=== PATIENT | female | born 1960 | race Hispanic/Latino ===

== ENCOUNTER 2019-02-08 03:47 | Emergency (ER) | payer MEDICARE ==
[2019-02-08] MEDS ORDERED: ASPIRIN PO ONE (03:57)
--- NOTE | 2019-02-08 04:39 | XRay Report ---
CHEST 2 VIEWS INDICATION / CLINICAL INFORMATION: Chest Pain. COMPARISON: None available. FINDINGS: SUPPORT DEVICES: None. HEART / MEDIASTINUM: No significant abnormality. LUNGS / PLEURA: No significant pulmonary or pleural abnormality. No pneumothorax. ADDITIONAL FINDINGS: No significant additional findings. IMPRESSION: 1. No acute findings. Signer Name: Christen Wright MD Signed: 02/08/2019 3:34 AM Workstation Name: [id number]
[2019-02-08 04:56] LABS: Basophils # (Auto) 0.1 K/mm3 (0.0-0.1); Basophils % (Auto) 0.9 % (0.0-1.8); Eosinophils # (Auto) 0.2 K/mm3 (0.0-0.4); Eosinophils % (Auto) 1.5 % (0.0-4.3); Lymphocytes # (Auto) 3.3 K/mm3 (1.2-5.4); Lymphocytes % (Auto) 31.1 % (13.4-35.0); Mean Corpuscular HGB Conc 30 % (30-34); Monocytes # (Auto) 0.9 K/mm3 (0.0-0.8); Monocytes % (Auto) 8.9 % (0.0-7.3); Platelet Count 232 K/mm3 (140-440); Red Blood Count 4.82 M/mm3 (3.65-5.03); Red Cell Distribution Width 17.9 % (13.2-15.2)
[2019-02-08 05:03] LABS: Hematocrit 31.1 % (30.3-42.9); Hemoglobin 9.3 gm/dl (10.1-14.3); Mean Corpuscular Volume 65 fl (79-97)
[2019-02-08 05:19] LABS: BUN/Creatinine Ratio 11; Blood Urea Nitrogen 11 mg/dL (7-17); Calcium 9.6 mg/dL (8.4-10.2); Hemolysis Index 0
[2019-02-08] MEDS ORDERED: DUONEB *Not for PRN Use IH ONE (06:33)
[2019-02-08] MEDS ORDERED: LEVAQUIN PO ONE (06:34)
--- NOTE | 2019-02-08 07:18 | Emergency Department Report ---
ED Shortness of Breath HPI - General Chief Complaint: Dyspnea/Respdistress Stated Complaint: EDD Time Seen by Provider: 02/08/19 06:22 Source: patient Mode of arrival: Ambulatory Limitations: No Limitations - History of Present Illness Initial Comments: Mrs. Mcghee is a pleasant 58-year-old female with history of "bronchial asthma". She presents with 3 weeks of shortness of breath. Her primary physician has prescribed inhaler, steroids and antibiotics [id number] without improvement. She states the inhaler makes the shortness of breath worse. Denies chest pain. Denies leg pain. Denies recent travel. Past medical history includes diabetes, asthma, In 2014 she was admitted for chest pain. Ruled out for ACS with negative stress test. Ejection fraction greater than 65%. She was told by her quality assurance lead that she had 40% blockage but no history of congestive heart failure. She has not been evaluated or diagnosed by [facility]. Former smoker stopped smoking 20 years ago. MD Complaint: shortness of breath -: Gradual, week(s) (3) Severity: mild Consistency: constant Worsens With: medication Known History Of: asthma Associated Symptoms: denies other symptoms - Related Data Home Medications Medication Instructions Recorded Confirmed Last Taken Insulin NPH/Regular [NovoLIN 70/30] 40 units SQ AMHY 08/10/14 03/27/15 08/09/14 Insulin NPH/Regular [NovoLIN 70/30] 50 units SQ HS 08/10/14 03/27/15 08/09/14 Metoprolol [Lopressor TAB] 50 mg PO BID 08/10/14 03/27/15 08/09/14 glipiZIDE [glipiZIDE XL] 10 mg PO BID 08/10/14 03/27/15 08/09/14 Atorvastatin Calcium [Lipitor] 20 mg PO DAILY 03/27/15 03/27/15 Unknown Venlafaxine [Effexor] 75 mg PO BID 03/27/15 03/27/15 1 Day Ago ~03/26/15 150mg Previous Rx's Medication Instructions Recorded Last Taken Type Cyclobenzaprine [Flexeril 10 MG 10 mg PO TID PRN #14 tablet 01/11/14 Unknown Rx TAB] Ibuprofen [Motrin 800 MG tab] 800 mg PO Q8H #50 tablet 07/24/14 Unknown Rx ALBUTEROL Inhaler (OR & NICU) 2 puff IH QID PRN #1 inhalation 08/10/14 Unknown Rx [ProAir HFA Inhaler] Fluticasone (Nf) [Flovent Hfa(Nf)] 2 puff IH BID 30 Days #1 device 02/08/19 Unknown Rx levoFLOXacin [Levaquin TAB] 500 mg PO QDAY #7 tablet 02/08/19 Unknown Rx Allergies Allergy/AdvReac Type Severity Reaction Status Date / Time No Known Allergies Allergy Verified 03/27/15 16:16 ED Review of Systems ROS: Stated complaint: EDD Other details as noted in HPI Comment: All other systems reviewed and negative Constitutional: denies: fever, malaise Respiratory: shortness of breath ED Past Medical Hx - Past Medical History Previous Medical History?: Yes Hx Hypertension: Yes Hx Diabetes: Yes Additional medical history: chronic back pain, crohns. anemia. heart blockage - Surgical History Past Surgical History?: Yes Hx Cholecystectomy: Yes - Social History Smoking Status: Never Smoker Substance Use Type: None - Medications Home Medications: Home Medications Medication Instructions Recorded Confirmed Last Taken Type Cyclobenzaprine [Flexeril 10 MG 10 mg PO TID PRN #14 tablet 01/11/14 03/27/15 Unknown Rx TAB] Ibuprofen [Motrin 800 MG tab] 800 mg PO Q8H #50 tablet 07/24/14 03/27/15 Unknown Rx ALBUTEROL Inhaler (OR & NICU) 2 puff IH QID PRN #1 inhalation 08/10/14 03/27/15 Unknown Rx [ProAir HFA Inhaler] Insulin NPH/Regular [NovoLIN 70/30] 40 units SQ AMHY 08/10/14 03/27/15 08/09/14 History Insulin NPH/Regular [NovoLIN 70/30] 50 units SQ HS 08/10/14 03/27/15 08/09/14 History Metoprolol [Lopressor TAB] 50 mg PO BID 08/10/14 03/27/15 08/09/14 History glipiZIDE [glipiZIDE XL] 10 mg PO BID 08/10/14 03/27/15 08/09/14 History Atorvastatin Calcium [Lipitor] 20 mg PO DAILY 03/27/15 03/27/15 Unknown History Venlafaxine [Effexor] 75 mg PO BID 03/27/15 03/27/15 1 Day Ago History ~03/26/15 150mg Fluticasone (Nf) [Flovent Hfa(Nf)] 2 puff IH BID 30 Days #1 device 02/08/19 Unknown Rx levoFLOXacin [Levaquin TAB] 500 mg PO QDAY #7 tablet 02/08/19 Unknown Rx ED Physical Exam - General Limitations: No Limitations General appearance: alert, in no apparent distress - Head Head exam: Present: atraumatic, normocephalic - Eye Eye exam: Present: normal appearance - ENT ENT exam: Present: mucous membranes moist - Neck Neck exam: Present: normal inspection, full ROM - Respiratory Respiratory exam: Present: normal lung sounds bilaterally. Absent: respiratory distress, wheezes, rales, rhonchi - Cardiovascular Cardiovascular Exam: Present: regular rate, normal rhythm, normal heart sounds. Absent: systolic murmur, diastolic murmur, rubs, gallop - GI/Abdominal GI/Abdominal exam: Present: soft, normal bowel sounds. Absent: distended, tenderness, guarding, rebound - Extremities Exam Extremities exam: Present: normal inspection - Back Exam Back exam: Present: normal inspection - Neurological Exam Neurological exam: Present: alert, oriented X3 - Psychiatric Psychiatric exam: Present: normal affect, normal mood - Skin Skin exam: Present: warm, dry, intact, normal color. Absent: rash ED Course Vital Signs 02/08/19 02/08/19 02/08/19 03:50 03:54 05:28 Temperature 97.7 F 97.7 F Pulse Rate 93 H 91 H Respiratory 18 20 Rate Blood Pressure 118/80 118/80 Blood Pressure [Left] O2 Sat by Pulse 97 97 96 Oximetry 02/08/19 02/08/19 02/08/19 05:30 05:33 07:27 Temperature Pulse Rate 88 Respiratory 18 20 Rate Blood Pressure 134/57 Blood Pressure 142/42 [Left] O2 Sat by Pulse 100 98 99 Oximetry ED Medical Decision Making - Lab Data Result diagrams: 02/08/19 04:45 02/08/19 04:45 Laboratory Results - last 24 hr 02/08/19 02/08/19 04:45 04:45 WBC 10.6 RBC 4.82 Hgb 9.3 L Hct 31.1 MCV 65 L MCH 19 L MCHC 30 RDW 17.9 H Plt Count 232 Lymph % (Auto) 31.1 Ware % (Auto) 8.9 H Eos % (Auto) 1.5 Baso % (Auto) 0.9 Lymph # 3.3 Ware # 0.9 H Eos # 0.2 Baso # 0.1 Seg Neutrophils % 57.6 Seg Neutrophils # 6.1 Sodium 135 L Potassium 3.9 Chloride 94.5 L Carbon Dioxide 25 Anion Gap 19 BUN 11 Creatinine 1.0 Estimated GFR 57 BUN/Creatinine Ratio 11 Glucose 336 H Calcium 9.6 Troponin T < 0.010 - EKG Data -: EKG Interpreted by Me - EKG Data 02/08/19 07:19 EKG obtained 0406 Normal sinus rhythm rate 85 beats a minute normal axis normal intervals and nonspecific T wave pattern no ST elevation positive LVH - Radiology Data Radiology results: report reviewed CXR: no acute findings according to radiology report - Medical Decision Making Mrs. Mcghee presents with 3 weeks of dyspnea and "bronchial asthma." No indication of PE, PNA, CHF, ACS or lung mass. Referred to [facility]. Rx: flovent, levaquin Critical care attestation.: If time is entered above; I have spent that time in minutes in the direct care of this critically ill patient, excluding procedure time. ED Disposition Clinical Impression: Acute asthma exacerbation, Dyspnea Disposition: [id number] TO HOME OR SELFCARE Is pt being admited?: No Does the pt Need Aspirin: No Condition: Stable Instructions: Asthma (ED), Dyspnea (ED) Prescriptions: Fluticasone (Nf) [Flovent Hfa(Nf)] 2 puff IH BID 30 Days #1 device levoFLOXacin [Levaquin TAB] 500 mg PO QDAY #7 tablet Referrals: BEBA GRAY JR, MD [Primary Care Provider] - 3-5 Days GUILLERMINA YBARRA MD [Staff Physician] - 3-5 Days
[2019-02-08 07:28] VITALS: BP 142/42
== END 2019-02-08 09:43 | disposition home or self-care (01) ==
LOC: ED 03:47
DX: J45.901 Unspecified asthma with (acute) exacerbation (principal); E11.9 Type 2 diabetes mellitus without complications; I10 Essential (primary) hypertension; M54.9 Dorsalgia, unspecified; G89.29 Other chronic pain; K50.90 Crohn's disease, unspecified, without complications; Z90.49 Acquired absence of other specified parts of digestive tract; Z86.2 Personal history of diseases of the blood and blood-forming organs and certain disorders involving the immune mechanism; Z79.1 Long term (current) use of non-steroidal anti-inflammatories (NSAID); Z79.4 Long term (current) use of insulin; Z79.899 Other long term (current) drug therapy; Z87.891 Personal history of nicotine dependence
CPT/HCPCS: 36415; 71046; 80048; 83880; 84484; 85025; 85379; 93005; 93010; 94640